=== PATIENT | female | born 1960 | race Caucasian/White ===

== ENCOUNTER 2020-06-18 11:53 | Observation (INO) | payer BC ==
[2020-06-18] MEDS: hydrOXYzine HCl 25 MG Tab PO ONE (12:38)
--- NOTE | 2020-06-18 13:21 | EDM.PDOC ---
ED HPI GENERAL MEDICAL PROBLEM - General Chief Complaint: Cardiovascular Problem Stated Complaint: DIZZINESS,SOB Time Seen by Provider: 06/18/20 12:30 Source of Information: Reports: Patient - History of Present Illness INITIAL COMMENTS - FREE TEXT/NARRATIVE: Pt was at work today and was feeling weak and dizzy. Work mates told her she looked very pale and she was brought to ER by her daughter for evaluation. No fevers, no coughs, no NVD, no abdominal pain. States she is newly dx diabetic and been placed insulin and Co-Q10 nothing else is new. Onset: Today Duration: Day(s): Location: Denies: Head, Chest, Abdomen Severity: Moderate Improves with: Reports: Rest Worsens with: Reports: Movement Associated Symptoms: Denies: Chest Pain, Cough, Diaphoresis, Fever/Chills, Malaise - Related Data Allergies Allergy/AdvReac Type Severity Reaction Status Date / Time ascorbic acid Allergy Itching Verified 06/18/20 16:31 oil AdvReac Other Uncoded 10/11/18 08:33 Home Meds: Home Meds Aspirin 81 mg PO DAILY 06/18/20 [History] Insulin Aspart [NovoLOG] 4 unit SUBCUT TIDMEALS 06/18/20 [History] Insulin Glargine,Hum.Rec.Anlog [Lantus Solostar] 13 unit SQ BEDTIME 06/18/20 [History] Losartan [Cozaar] 50 mg PO DAILY 06/18/20 [History] Ubidecarenone [COQ-10] 30 mg PO DAILY 06/18/20 [History] atorvaSTATin [Lipitor] 10 mg PO BEDTIME 06/18/20 [History] metFORMIN [Glucophage XR] 500 mg PO DAILY 06/18/20 [History] Past Medical History Gastrointestinal History: Reports: None Genitourinary History: Reports: None [employer] History: Reports: Oncologic (Cancer) History: Reports: Other (See Below) Other Oncologic History: hx of blood fed neurofibromatosis - Past Surgical History GI Surgical History: Reports: Appendectomy Female Surgical History: Reports: Hysterectomy Oncologic Surgical History: Reports: Lumpectomy ED ROS GENERAL - Review of Systems Review Of Systems: See Below Constitutional: Reports: Weakness, Fatigue HEENT: Reports: No Symptoms Respiratory: Reports: No Symptoms, Shortness of Breath. Denies: Wheezing, Pleuritic Chest Pain Cardiovascular: Reports: No Symptoms. Denies: Chest Pain, Blood Pressure Problem GI/Abdominal: Reports: No Symptoms, Other (darker stools than normal but she tought related to Co-Q10). Denies: Abdominal Pain, Black Stool, Bloody Stool Musculoskeletal: Reports: Other (occasional muscle weakness of late, no trauma) Skin: Reports: Pallor Neurological: Reports: Dizziness, Weakness Psychiatric: Reports: Anxiety Hematologic/Lymphatic: Reports: No Symptoms. Denies: Easy Bleeding, Easy Bruising, Swollen Glands Immunologic: Reports: No Symptoms ED EXAM, DIZZINESS - Physical Exam Exam: See Below Exam Limited By: No Limitations General Appearance: Alert, WD/WN, Anxious, Mild Distress Ears: Normal External Exam Nose: Normal Inspection Throat/Mouth: Normal Inspection Head Exam: Atraumatic, Normocephalic Neck: Normal Inspection, Supple Respiratory/Chest: No Respiratory Distress, Lungs Clear, Normal Breath Sounds, No Accessory Muscle Use, Chest Non-Tender. No: Respiratory Distress Cardiovascular: Normal Peripheral Pulses, Regular Rate, Rhythm, No Edema, No Gallop, No JVD. No: Bradycardia, Tachycardia GI/Abdominal: Normal Bowel Sounds, Soft, Non-Tender, No Distention Rectal (Female) Exam: Normal Exam, Normal Rectal Tone, Heme + Stool. No: Black Stool, Bloody Stool, Hemorrhoids, Mass, Perirectal Abscess, Rectal Fissure, Tenderness Neurological: Alert, Normal Mood/Affect Back Exam: Normal Inspection Extremities: Normal Inspection, Normal Range of Motion Psychiatric: Normal Affect Skin Exam: Warm, Dry, Intact, Pallor Course - Vital Signs Last Recorded V/S: Last Vital Signs Temp 97.4 F 06/18/20 21:20 Pulse 87 06/18/20 21:20 Resp 16 06/18/20 21:20 BP 127/68 06/18/20 21:20 Pulse Ox 99 06/18/20 21:20 - Orders/Labs/Meds Labs: Laboratory Tests 06/18/20 06/18/20 06/18/20 Range/Units 12:26 12:30 13:22 Hgb 5.4 L* D (11.5-16.5) g/dL Hct 17.6 L* D (37.0-47.0) % Sodium 136 (136-145) mmol/L Potassium 4.4 (3.5-5.1) mmol/L Chloride 101 (98-107) mmol/L Carbon Dioxide 24.6 (21.0-32.0) mmol/L Anion Gap 14.8 (5.0-15.0) mmol/L BUN 24 D (8-26) mg/dL Creatinine 0.90 (0.55-1.02) mg/dL Est Cr Clr Drug Dosing TNP Estimated GFR (MDRD) > 60 (>60) MLS/MIN BUN/Creatinine Ratio 26.7 H (6-25) Glucose 159 H D (74-100) mg/dL Calcium 8.4 L (8.5-10.1) mg/dL Blood Type O NEGATIVE Gel Antibody Screen Negative Crossmatch See Detail Meds: Medications Discontinued Medications Generic Name Dose Route Start Last Admin Trade Name Freq PRN Reason Stop Dose Admin Hydroxyzine HCl 25 mg 06/18/20 12:32 06/18/20 12:38 Atarax PO 06/18/20 12:33 25 mg ONETIME ONE Administration - Re-Assessments/Exams Free Text/Narrative Re-Assessment/Exam: Pt is 60 y/o female with one day only of feeling weak and dizzy. 06/18/20 14:06 Free Text/Narrative Re-Assessment/Exam: 06/18/20 16:33 Pt is in process of receiving blood. Spoke with [facility] Dr Salcedo who recommended two units of PRBC and CT of chest abdomen and pelvis. Free Text/Narrative Re-Assessment/Exam: 06/18/20 20:30 Pt had two units of PRBC Arrangement to have pt transferred to [place], [place] Departure - Departure Time of Disposition: 21:45 Disposition: DC/Tfer to Acute Hospital 02 Condition: Fair Clinical Impression: GI bleed - Discharge Information *PRESCRIPTION DRUG MONITORING PROGRAM REVIEWED*: Not Applicable *COPY OF PRESCRIPTION DRUG MONITORING REPORT IN PATIENT [place]: Not Applicable Sepsis Event Note (ED) - Evaluation Sepsis Screening Result: No Definite Risk - Focused Exam Vital Signs: Vital Signs Temp Pulse Resp BP Pulse Ox 06/18/20 15:00 97.8 F 96 18 137/70 100 06/18/20 12:20 102 H 20 143/87 H 100 06/18/20 12:05 97.8 F 98 16 143/71 H 100
--- NOTE | 2020-06-20 14:29 | CT ---
Date of Service: 06/18/20 Clinical Data: hgb 5.[address]: Multislice acquisition through the chest without IV contrast was performed. No priors. The lungs are clear. No pneumothorax. No pleural effusions. No aortic aneurysm. The heart size is normal. No significant pericardial effusion. No hilar or mediastinal adenopathy. There is degenerative disk disease at multiple levels in the thoracic spine. IMPRESSION: No acute abnormalities. UNENHANCED ABDOMEN AND PELVIC CT: Multislice acquisition through the abdomen and pelvis without IV or oral contrast was performed. No priors. The patient is status post cholecystectomy. The liver is normal size. It does have mildly increased attenuation diffusely with respect to the spleen suggesting hemochromatosis. No focal hepatic lesions. No biliary duct dilatation. The spleen appears normal. The pancreas appears normal. The right and left adrenals appear normal. The right and left kidneys appear normal. No nephrocalcinosis or nephrolithiasis. No hydronephrosis or hydroureter. The bladder is partially fluid-filled. It appears normal. The patient is status post hysterectomy. No evidence of appendicitis. No free air. No free fluid. No dilated loops of bowel. No adenopathy. No aortic aneurysm. There is degenerative disk disease throughout the lower thoracic and lumbar spine. There is a 4.2 cm oval-shaped fat density lesion involving the left rectus abdominis muscle superiorly consistent with a benign lipoma. No other significant findings. [id number] [facility]
== END 2020-06-18 21:45 ==
LOC: LB.ED 11:53 → LB.MS 15:03
PROVIDERS: ADMIT Physician Assistant Surgical; ATTEND Physician Assistant Surgical
DX: K92.2 Gastrointestinal hemorrhage, unspecified (principal); E11.9 Type 2 diabetes mellitus without complications; Z79.82 Long term (current) use of aspirin; Z79.4 Long term (current) use of insulin
CPT/HCPCS: 36415; 36430; 71250; 74176; 80048; 82962; 85014; 85018; 86850; 86900; 86901; 86920; 86922; 99285-25; A9270-GY; G0378; P9016